=== PATIENT | female | born 1965 | race Caucasian/White ===

== ENCOUNTER 2022-06-30 16:50 | Emergency (ER) | payer OTHER ==
[2022-06-30 17:11] VITALS: BMI 34.5
[2022-06-30] MEDS ORDERED: ACETAMINOPHEN 500 MG TABLET (FP) PO ONE (18:55)
[2022-06-30] MEDS ORDERED: ACETAMINOPHEN 500 MG TABLET (FP) ONE (18:56)
[2022-06-30] MEDS ORDERED: SODIUM CHLORIDE 1,000 ML IV STA (19:26)
[2022-06-30] MEDS ORDERED: morphine CARPU-JECT 2 MG/1 ML DISP.SYRIN IVPUSH ONE (19:26)
[2022-06-30 20:13] LABS: BASO % 0.7 % (0-2.0); EOS % 2.5 % (0-4.5); HEMATOCRIT 38.5 % (32.4-45.2); HEMOGLOBIN 13.5 GM/dL (10.7-15.3); LYMPH % 45.7 % (8-40); MCH 32.1 pg (25.7-33.7); MCHC 35.1 g/dl (32.0-36.0); MEAN CELL VOLUME 91.4 fl (80-96); MEAN PLT VOLUME 8.5 fl (7.5-11.1); MONO % 8.6 % (3.8-10.2); NEUT % 42.5 % (42.8-82.8); PLATELET COUNT 330 10^3/uL (134-434); RBC 4.21 M/mm3 (3.60-5.2)
[2022-06-30 20:20] LABS: INR 1.01 (0.83-1.09); PROTHROMBIN TIME (PATIENT) 11.7 SEC (9.7-13.0)
[2022-06-30 20:23] LABS: ACTIVATED PTT 29.2 SECONDS (25.2-36.5)
[2022-06-30 20:36] LABS: CHLORIDE 105 mmol/L (98-107); SODIUM 138 mmol/L (136-145)
[2022-06-30 20:38] LABS: CALCIUM 9.2 mg/dL (8.5-10.1)
[2022-06-30 20:39] LABS: ALBUMIN 3.9 g/dl (3.4-5.0); ANION GAP 7 MMOL/L (8-16); BLOOD UREA NITROGEN 16.5 mg/dL (7-18); CO2 27 mmol/L (21-32); GLUCOSE,RANDOM 90 mg/dL (74-106)
[2022-06-30] MEDS ORDERED: HYDROmorphone HCl 2 MG/ML VIAL IVPUSH ONE (20:41)
[2022-06-30 20:42] LABS: CREATININE 0.5 mg/dL (0.55-1.3); SGOT/AST 20 U/L (15-37); SGPT/ALT 37 U/L (13-61)
[2022-06-30 20:45] LABS: ALK PHOS 67 U/L (45-117); BILIRUBIN,TOTAL 0.5 mg/dL (0.2-1); TOT PROT 7.8 g/dl (6.4-8.2)
[2022-06-30] MEDS ORDERED: HYDROmorphone HCl 2 MG/ML VIAL ONE (20:45)
[2022-06-30 20:50] LABS: ERYTHROCYTE SEDIMENTATION RATE 18 mm/hr (0-30)
[2022-06-30 22:28] VITALS: BP 144/69; PULSE 78; RESP 19; TEMP 97.9
== END 2022-07-01 00:46 | disposition home or self-care (01) ==
LOC: JER 16:50
PROC: 3E033GC Introduction of Other Therapeutic Substance into Peripheral Vein, Percutaneous Approach (ICD-10-PCS; principal; 2022-06-30)
PROC: 3E033GC Introduction of Other Therapeutic Substance into Peripheral Vein, Percutaneous Approach (ICD-10-PCS; 2022-06-30)
PROC: 3E033GC Introduction of Other Therapeutic Substance into Peripheral Vein, Percutaneous Approach (ICD-10-PCS; 2022-06-30)
DX: M25.561 Pain in right knee (principal); Z87.828 Personal history of other (healed) physical injury and trauma
CPT/HCPCS: 36415; 73560-TC-RT-FY; 73562-TC-RT-FY; 73706-TC-RT; 80053; 85025; 85610; 85651; 85730; 86140; 99285-25; Q9967